=== PATIENT | male | born 1970 | race Caucasian/White ===

== ENCOUNTER 2017-05-13 15:27 | Emergency (ER) | END 2017-05-13 19:11 | disposition home or self-care (01) ==

== ENCOUNTER 2017-05-16 10:37 | Emergency (ER) | END 2017-05-16 12:42 | disposition home or self-care (01) ==

== ENCOUNTER 2017-05-22 05:55 | Emergency (ER) | END 2017-05-22 07:25 | disposition home or self-care (01) ==

== ENCOUNTER 2017-06-04 08:37 | Emergency (ER) | END 2017-06-04 09:40 | disposition home or self-care (01) ==